=== PATIENT | male | born 1950 | race Caucasian/White ===

== ENCOUNTER → 2018-06-05 | Outpatient (CLI) | payer OTHER ==
[~2018-06-05] MED LIST: IOPAMIDOL (ISOVUE-300) 100 ML BTL ONE
== END ==
LOC: FIMAGING 08:30
PROVIDERS: ATTEND Surgery
DX: C18.9 Malignant neoplasm of colon, unspecified (principal)
CPT/HCPCS: Q9967

== ENCOUNTER 2018-06-12 05:46 | Inpatient (IN) | payer OTHER ==
--- NOTE | 2018-06-12 06:00 | PDANEPAE ---
ANE History of Present Illness partial colectomy, robot-assisted laparoscopy. ANE Past Medical History - Cardiovascular History Hx Hypertension: Yes Hx Arrhythmias: No Hx Chest Pain: No Hx Coronary Artery / Peripheral Vascular Disease: No Hx CHF / Valvular Disease: No Hx Palpitations: No Cardiovascular History Comment: pcp monitors bp meds. hx of heart murmur, had "chemical stress test" which apparently was "Ok" - Pulmonary History Hx COPD: No Hx Asthma/Reactive Airway Disease: No Hx Recent Upper Respiratory Infection: No Hx Oxygen in Use at Home: No Hx Sleep Apnea: No Sleep Apnea Screening Result - Last Documented: Positive Pulmonary History Comment: RAHUL on CPAP - Neurologic History Hx Cerebrovascular Accident: No Hx Seizures: No Hx Dementia: No Neurologic History Comment: Meniere's disease. vertigo - Endocrine History Hx Diabetes: No Obesity: mild - Renal History Hx Renal Disorders: No - Liver History Hx Hepatic Disorders: No - Neurological & Psychiatric Hx Hx Neurological and Psychiatric Disorders: No - Cancer History Hx Cancer: Yes Cancer History Comment: colon ca currently - Congenital Disorder History Hx Congenital Disorders: No - GI History GERD: no Hx Gastrointestinal Disorders: Yes Gastrointestinal History Comment: colonoscopy in sept- removed 3 polyps- cancerous on inside not outside - Other Health History Other Health History: wears reading glasses. wears bilateral hearing aides - Chronic Pain History Chronic Pain: No - Surgical History Prior Surgeries: tonsillectomy, laparoscopically-assisted partial colectomy ANE Review of Systems Review of Systems: - Exercise capacity METS (RN): 4 METS ANE Patient History - Allergies Allergies/Adverse Reactions: No Known Allergies Allergy (Verified 06/01/18 11:23) - Home Medications Home Medications: Hydrochlorothiazide [HCTZ (*)] 12.5 mg PO DAILY 02/11/16 [Last Taken 06/11/18] Losartan Potassium [Cozaar 25 mg (*)] 25 mg PO DAILY 02/11/16 [Last Taken ] Aspirin [Aspirin 325 mg (*)] 325 mg PO DAILY PRN 06/01/18 [Last Taken 06/05/18] Ezetimibe [Zetia 10 MG (*)] 10 mg PO DAILY 06/01/18 [Last Taken 06/11/18] Rosuvastatin Calcium [Crestor 40mg (*)] 40 mg PO DAILY 06/01/18 [Last Taken ] Sodium Chloride [Saline Nasal Colby] 1 drop NS DAILY 06/01/18 [Last Taken ] - Anes Hx Anes Hx: no prior problems - Smoking Hx Smoking Status: Former smoker Marijuana use: No - Alcohol Use Alcohol Use: Other (2-3 drinks/day) - Family Anes Hx Family Anes Hx: none Family Hx Anesthesia Complications: None ANE Labs/Vital Signs - Vital Signs Height: 182.88 cm Weight: 92.986 kg ANE Physical Exam - Airway Neck exam: decreased ROM (Decreased extension,lateral rotation) Mallampati Score: Class 3 Mouth exam: normal dental/mouth exam, small mouth opening - Pulmonary Pulmonary: clear to auscultation - Cardiovascular Cardiovascular: regular rate and rhythym, systolic murmur - ASA Status ASA Status: III ANE Anesthesia Plan Anesthesia Plan: general endotracheal anesthesia (Possible difficult intubation and use of special intubating equipment discussed. Questions answered.)
[2018-06-12] MEDS ORDERED: LR 1,000 ML IV ONE (06:22)
[2018-06-12] MEDS ORDERED: MIDAZOLAM 2 MG/2 ML VIAL IVP ONE (07:04)
[2018-06-12] MEDS ORDERED: fentaNYL 250 MCG/5 ML INJ ONE (07:12)
[2018-06-12] MEDS ORDERED: ROCURONIUM 50 MG/5 ML VIAL ONE ×3 (07:13→11:19)
[2018-06-12] MEDS ORDERED: DEXAMETHASONE 4 MG/ML VIAL ONE (07:13)
[2018-06-12] MEDS ORDERED: PROPOFOL/EMULSION 500 MG/50 ML BOTTLE IV ONE ×3 (07:13→10:36)
[2018-06-12] MEDS ORDERED: cefOXitin SODIUM 2 GM in NS 100 ML IV ONE (07:15)
--- NOTE | 2018-06-12 07:16 | PDHPUP ---
History & Physical Update H&P update statement: This history and physical update is based on an assessment of the patient which was completed after admission or registration (within 24 hours), but prior to the surgery/procedure. H&P update: H&P reviewed & patient examined, no change in patient's condition since H&P completed
[2018-06-12] MEDS ORDERED: BUPIVACAINE 0.5% 30 ML SDV ONE (07:46)
[2018-06-12] MEDS ORDERED: PHENYLEPHRINE HCL 100 MCG/ML SYR ONE (07:49)
[2018-06-12] MEDS ORDERED: fentaNYL 100 MCG/2 ML INJ ONE (09:03)
[2018-06-12] MEDS ORDERED: HYDROmorphONE/DILAUDID 2 MG/ML INJ ONE (10:22)
[2018-06-12 12:03] LABS: PLATELET COUNT 261 10^3/uL (150-400)
[2018-06-12] MEDS ORDERED: ALBUMIN 25% 50 ML SOLN IV ONE (12:41)
[2018-06-12] MEDS ORDERED: ALBUMIN 5% 250 ML BOTTLE IV ONE (12:41)
[2018-06-12] MEDS ORDERED: ONDANSETRON 4 MG/2 ML VIAL ONE (14:24)
[2018-06-12] MEDS ORDERED: BUPIVACAINE 0.25% 30 ML SDV ONE (14:40)
[2018-06-12] MEDS ORDERED: fentaNYL 100 MCG/2 ML INJ IVP PRN (14:44)
[2018-06-12] MEDS ORDERED: HYDROmorphONE/DILAUDID 1 MG/ML INJ IVP PRN ×2 (14:44→15:53)
[2018-06-12] MEDS ORDERED: NALOXONE HCL 0.4 MG/ML INJ IVP PRN (14:44)
[2018-06-12] MEDS ORDERED: PROMETHAZINE HCL 25 MG/ML INJ IVP PRN (14:44)
[2018-06-12] MEDS ORDERED: SUGAMMADEX SODIUM 200 MG/2 ML VIAL IVP ONE (14:47)
--- NOTE | 2018-06-12 14:59 | GCON ---
[f rep st] CONSULTATION INTRAOPERATIVE CONSULT DATE OF CONSULTATION: 06/12/2018 Dr. Pink had been doing a bowel operation on the patient and intraoperatively was concerned about identifying his left ureter and possible transection. On inspecting the intraabdominal space, I coul d identify the proximal end of the ureter. With the present surgery, I felt that I could not assess the distal ureter until I was able to dissect the bladder out further, but wanted to hold off until h e was done with his gastrointestinal surgical procedure. So at that point, I had left the operating room only to return sometime later to do the actual procedure. I reviewed the patient's chart. 1. I feel that this procedure was complicated and with the scarring and stuff that was toward the re troperitoneum, that this was a transection that would have been difficult to avoid. 2. It was identified appropriately. 3. I consulted for Urology. 4. Repaired in what I felt was a very technically good style. I sent no specimens and the patient tolerated the procedure intraoperatively well. /[id number]/MODL
--- NOTE | 2018-06-12 15:09 | GOP ---
[f rep st] OPERATIVE REPORT DATE OF OPERATION: 06/12/2018 SURGEON: Minh Carter MD PREOPERATIVE DIAGNOSIS: Ureteral transection. POSTOPERATIVE DIAGNOSIS: Ureteral transection. PROCEDURE PERFORMED: Ureteroureterostomy with mobilization of fat for a fat implant support anastomo sis and placement of a ureteral stent in an open fashion through a ureteroureterostomy and then cysto scopy. FINDINGS: DESCRIPTION OF PROCEDURE: After completion of the abdominal bowel surgery, I came and evaluated the bladder and the ureteral transection and dissected out the left side of the bladder and mobilized it and felt that I could not do a primary psoas hitch without mobilizing it and possibly doing a Boari f lap. Then at that point, I dissected out both distal and proximal ureters and elected that without t ension I could do a primary ureteroureterostomy and so the ureter was spatulated on the medial side o f the distal segment on the lateral side of the proximal segment. Then I did a primary anastomosis us ing a running Vicryl, and the spatulated distance was approximately 1.5 cm. I did the anterior wall first. Before I did the lateral wall, I placed a 4.7 multi-length stent, and that felt like it curled in the kidney both of those over a wire and it moved quite easily. At that point, the ant erior connection of the ureteroureterostomy was done with a Vicryl, and then I harvested fat from the yoko bladder area and wrapped that in a vascularized pedicle of fat around the ureter to reinforce i t so that hopefully it would close without any significant leakage. Then at that point, I had removed the catheter and cystoscoped him. He had no bladder injury. I could identify the ureter coming thro ugh the left ureteral orifice and then a Mondragon catheter was passed with a 10 cc balloon. I had recom mended that he continue the Mondragon catheter drainage for five days. If there is not much leakage, he c ould try to remove it and would take the stent out in approximately two weeks, if the patient has no problems or complications. /[id number]/MODL
[2018-06-12] MEDS ORDERED: OXYCODONE/APAP 5/325 TAB PO PRN (15:53)
[2018-06-12] MEDS ORDERED: cefOXitin SODIUM 2 GM in NS 100 ML IV SCH (16:00)
--- NOTE | 2018-06-12 16:00 | POSTOPPROG ---
Post Op Note Date of Operation: 06/12/18 Surgeon: Yunior Pink Salon Leader: Dr. Munguia Anesthesiologist: Dr. Cruz Anesthesia: GET(General Endotracheal) Pre-op Diagnosis: Colon cancer Post-op Diagnosis: same Procedure: Attempted DV/lap LAR, converted to open Macho's, ureter repair per uro Inf/Abcess present in the surg proc area at time of surgery?: Yes Depth: Organ Space EBL: 100-500
--- NOTE | 2018-06-12 16:07 | POSTANESTH ---
Post Anesthetic Evaluation Cardiovascular Status: Similar to Pre-Op Cond Respiratory Status: Similar to Pre-op Cond. Level of Consciousness/Mental Status: Can Participate in Eval Pain Control: Adequate, Prn Tx Ordered (On 06/13, patient reports his pain was well controlled overnight.) Nausea/Vomiting Control: Adequate, Prn Tx Ordered Complications Possibly Related to Anesthesia: None Noted
--- NOTE | 2018-06-12 16:48 | PDMN ---
Medical Necessity Medical necessity: [facility] S235 Bowel Surgery: Colectomy, Partial, with or without Ostomy, 4 days: 67 yo sched for low anterior colon resect, converted to open colon resect w/ colostomy (Nicholson's Procedure) w/ ureteroscopy and ureteral stent placement for colon adenocarcinoma. [facility] IP only.
--- NOTE | 2018-06-12 17:35 | GOP ---
[f rep st] OPERATIVE REPORT DATE OF OPERATION: 06/12/2018 SURGEON: Yung Pink MD WATER RESTORATION TECHNICIAN: Dr. Munguia, whose presence was requested by me and medically necessary for the safe and timely completion of this case. ANESTHESIA: General endotracheal anesthesia ANESTHESIOLOGIST: Dr. Cruz. PREOPERATIVE DIAGNOSIS: Colon cancer. POSTOPERATIVE DIAGNOSIS: Colon cancer. PROCEDURE PERFORMED: 1. Attempted robotic low anterior resection. 2. Rigid sigmoidoscopy. 3. Open Macho procedure. FINDINGS: The patient had a bulky mass, approximately 6 cm from the anal verge. The patient had scar tissue present at the site of the prior anastomosis. No liver, peritoneal, or omental lesions were identified. ESTIMATED BLOOD LOSS: 500 mL. INDICATIONS: This is a 67-year-old male with a history of prior colon polyp. Patient underwent prior robotic resection. The patient was found to have a recurrent mass on colonoscopy at the anastomotic site. Risks and benefits of the procedure were discussed with the patient's family. Their questions were answered and they wished to proceed. DESCRIPTION OF PROCEDURE: The patient was placed in the supine position initially. After the induction of adequate general endotracheal anesthesia, the patient was moved to the modified lithotomy position. He was then prepped and draped in the standard surgical fashion. 0.5% Marcaine was injected throughout the supraumbilical area for local anesthesia. An 8 mm incision was made and the abdominal wall was elevated. A Veress needle was inserted and after noting proper pressures, the abdomen was insufflated with carbon dioxide. An 8 mm trocar was passed. The camera followed. There was no apparent damage from trocar placement. Four more ports were placed, three 8 mm ports throughout the upper abdomen and one 12 mm port in the right lower quadrant. These were all placed under direct vision after injecting with 0.5% Marcaine for local anesthesia. There were no adhesions anterior to the colon omentum. However, after inspecting the sigmoid, there were adhesions on the mesenteric aspect. The right ureter was identified easily. However, in the dissection to identify the left ureter, a transection occurred. This was recognized immediately and urology consultation was obtained. Dissection was then carried posteriorly, attempting to obtain a mesorectal excision. However, there was thick scar tissue present. Vessel sealer was employed. However, a venous branch was transected. This could not be controlled adequately with the robotic instruments. Decision was made, at this point, to convert to an open procedure. A lower midline laparotomy was made with a #10 blade and carried down through subcutaneous tissue with Bovie cautery and blunt dissection. The midline was divided and the abdomen was entered. All the trocars were removed. The bleeding site was packed and the left ureter secured away from the dissection site. The bleeding site was found to be a tangential transection of a branch. A [id number] 3-0 Vicryl suture was used to repair this with good resulting hemostasis. The mesentery was then carefully dissected posteriorly initially. Next, the lateral stalks were divided using the Harmonic Scalpel. The anterior portion of the dissection was carefully performed using blunt dissection and Harmonic scalpel. A good circumferential dissection was obtained and it was felt that the patient would have adequate margin for primary anastomosis. The Contour TA stapler was brought in and the distal rectum transected with this. The specimen was then palpated and there was found to be approximately 3 cm margins on the distal aspect. The proximal aspect had been transected prior to this using the RUFINO stapler. This margin was approximately 10 cm. The mesentery was fully transected using the Harmonic scalpel and the specimen was sent for permanent section. On evaluation of the rectal stump, it was found that there were 2 defects distal to the staple line. Multiple attempts were made to suture these using 3- 0 PDS in a running fashion. These attempts were checked using the saline leak test. They could not be adequately closed and it was is felt that a stapled anastomosis would not be viable at this time. The decision was made then to close the defect as well as possible and then proceed with Macho procedure. Site for colostomy was chosen in the left supraumbilical area. An elliptical incision was made with a #10 blade and carried down through the subcutaneous tissues with Bovie cautery. The fascia was cleared off and a cruciate incision made in the fascia using cautery. The rectus muscle was split bluntly and the peritoneum was entered in this fashion. The descending colon was then brought through this and it was ensured there was no twisting. The ostomy was then matured using 3-0 Vicryl. Initial sutures were taken of the subcutaneous tissue , the deep colon wall and the superficial colon wall to dionte it. Subsequent sutures were then taken of the distal colon wall and the subcutaneous tissue. This resulted in a viable stoma that was digitally palpated and found to be patent. Attention was then turned to the ureteral injury. Dr. Carter, at this point, performed a primary ureteral anastomosis. This was done over a stent. Please see his operative note for full details of that procedure. However, after covering the anastomosis with a fatty flap, the area was thoroughly irrigated and aspirated. Good hemostasis noted throughout. No other lesions were identified. The small bowel and colon were thoroughly palpated, as well as the liver. Again, no lesions were noted. A 10 flat CONNIE drain was placed in the right laparoscopic incision and secured using 2-0 nylon in interrupted fashion. The drain itself was placed in the pelvis near, but not directly adjacent to the rectal stump. The bowel and omentum were placed. The fascia was then closed using #1 PDS in a running fashion. This was reinforced with #1 PDS internal retention sutures. The wound was thoroughly irrigated. Skin at all sites was closed with lebron. The wounds were sterilely dressed and following this, a tap block was performed by Dr. Cruz. The patient was then extubated and taken to the PACU in stable condition. COMPLICATIONS: Include left ureteral injury. DRAINS: Include CONNIE drain in the pelvis. /[id number]/MODL MTDD
[2018-06-12] MEDS: cefOXitin SODIUM 2 GM in NS 100 ML IV SCH (22:29)
[2018-06-13] MEDS: cefOXitin SODIUM 2 GM in NS 100 ML IV SCH ×2 (04:22→10:39)
--- NOTE | 2018-06-13 09:46 | SOAPPROG ---
SOAP Progress Note Assessment/Plan: Assessment: s/p Macho's and L ureter repair, improving. Advance diet, resume meds. OK to transfer to floor. Ambulate, PT. D/w patient and at length, questions answered. Plan: 06/13/18 09:45 Subjective: Patient feels better, pain minimal. Rosalva clears without difficulty. Objective: Vital Signs Temp Pulse Resp BP Pulse Ox 37.8 C 90 17 125/74 H 99 06/13/18 07:17 06/13/18 07:17 06/13/18 07:17 06/13/18 07:17 06/13/18 07:17 Laboratory Results 06/13/18 05:07 06/13/18 05:07 06/12/18 06/13/18 06/14/18 05:59 05:59 05:59 Intake Total 5750 Output Total 1840 90 Balance 3910 -90 Alert, NAD RRR Abd soft, inc TTP Drsg C/D/I CONNIE serosang Ostomy viable. ICD10 Worksheet Patient Problems: Problems Problem Status Onset Colon cancer Acute
[2018-06-13] MEDS: EZETIMIBE 10 MG TAB PO SCH (10:38)
[2018-06-13] MEDS: ENOXAPARIN 40 MG/0.4 ML SYR SC SCH (11:46)
--- NOTE | 2018-06-13 13:42 | ASMTCMCOM ---
CM Note CM Note Notes: Pt is a 67 yo M with history of colon cancer. Pt underwent uretral transection. PT is ordered, CM to follow. Discharge needs TBD Plan: TBD Date Signed: 06/13/2018 01:42 PM Electronically Signed By:REJI Arciniega
[2018-06-13] MEDS: FAMOTIDINE 20 MG TAB PO SCH (21:07)
[2018-06-13] MEDS ORDERED: oxyCODONE IR 5 MG TAB PO PRN (22:22)
[2018-06-13] MEDS ORDERED: ACETAMINOPHEN 325 MG TAB PO PRN (22:22)
[2018-06-14] MEDS: ONDANSETRON 4 MG/2 ML VIAL IVP PRN ×3 (00:12→19:15)
[2018-06-14] MEDS ORDERED: SODIUM CL NASAL 45 ML BTL NS PRN (09:00)
--- NOTE | 2018-06-14 09:17 | SOAPPROG ---
SOAP Progress Note Assessment/Plan: Assessment: Post op left ureteral surgical repair Plan: Patient is doing well, will continue to monitor ZIYAD. Amanda stay in 06/14/18 09:14 Subjective: No complaints Objective: Vital Signs Temp Pulse Resp BP Pulse Ox 36.6 C 90 16 149/86 H 96 06/14/18 08:44 06/14/18 08:44 06/14/18 08:44 06/14/18 08:44 06/14/18 08:44 Laboratory Results 06/14/18 04:08 06/14/18 04:08 06/13/18 06/14/18 06/15/18 05:59 05:59 05:59 Intake Total 5750 1450 Output Total 1840 1945 35 Balance 3910 -495 -35 Physical Exam - Physical Exam General Appearance: alert, no apparent distress Neck: normal inspection Respiratory: normal breath sounds Abdomen: soft, other (ostomy pink and moist. incisions covered with bandage. ziyad output mildly bloody) ICD10 Worksheet Patient Problems: Problems Problem Status Onset Colon cancer Acute
[2018-06-14] MEDS: ENOXAPARIN 40 MG/0.4 ML SYR SC SCH (09:26)
[2018-06-14] MEDS: EZETIMIBE 10 MG TAB PO SCH (09:26)
[2018-06-14] MEDS: FAMOTIDINE 20 MG TAB PO SCH ×2 (09:26→21:53)
[2018-06-14] MEDS: LOSARTAN POTASSIUM 25 MG TAB PO SCH (09:26)
--- NOTE | 2018-06-14 10:03 | SOAPPROG ---
SOAP Progress Note Assessment/Plan: Assessment: s/p Macho's and L ureter repair, stable. Cont CONNIE and dyer. Ambulate, IS. Will watch labs and nausea for now. Appreciate urology assistance. Plan: 06/13/18 09:45 06/14/18 10:01 Subjective: Patient with an episode of N/V last PM, none now. In general concepción po. Ambulating with assist only. + flatus from ostomy. Objective: Vital Signs Temp Pulse Resp BP Pulse Ox 36.6 C 90 16 149/86 H 96 06/14/18 08:44 06/14/18 08:44 06/14/18 08:44 06/14/18 09:26 06/14/18 08:44 Laboratory Results 06/14/18 04:08 06/14/18 04:08 06/13/18 06/14/18 06/15/18 05:59 05:59 05:59 Intake Total 5750 1450 Output Total 1840 1945 60 Balance 3910 -495 -60 Alert, NAD RRR Abd soft, inc TTP Inc C/D/I CONNIE serous Dyer clear Ostomy viable, min serous drainage ICD10 Worksheet Patient Problems: Problems Problem Status Onset Colon cancer Acute
--- NOTE | 2018-06-14 15:10 | WOCRNPDOC ---
WOCRN Advanced Assessment Note - Skin Integrity Problem, Advanced Assess Medial Abdomen Surgical Wound/Incision Dressing Type: Open to Air Closure Description: Jordon, Approximated - Colostomy Assessment, Advanced Left Lower Abdomen Colostomy Stoma Colostomy Appliance Intact: Yes Colostomy Appliance Currently in Use: Two Piece Flat, 2 1/4, Cut to Fit Stoma Color: [place] Stoma Turgor: Moist, Taught Stoma Shape: Round Stoma Height: Protruding Colostomy Effluent: None (sweat) Colostomy Details: End Colostomy Comment/Treatment Details: Initial (day one) teaching done with patient and his . Discussed pouch options, wear time, sports and diet. Demonstrated how to empty the pouch, specifically the one piece 2 1/4 coloplast jose, which he will use at home. Initial product order form with Lyle filled out and sent to case managment. Secure start with coloplast initiated per patient verbal consent. All questions answered. Assigned patient reading "how to change ostomy pouch and colostomy surgery". Jacinto RN in room. chief hydroelectric station operator will round again tomorrow afternoon for initial pouch change.
[2018-06-14] MEDS: MELATONIN 3 MG TAB PO PRN (21:53)
[2018-06-15] MEDS: ONDANSETRON 4 MG/2 ML VIAL IVP PRN ×2 (03:27→08:13)
[2018-06-15] MEDS ORDERED: NS 1,000 ML IV SCH (08:45)
--- NOTE | 2018-06-15 08:58 | SOAPPROG ---
SOAP Progress Note Assessment/Plan: Assessment: Post op left ureteral surgical repair Plan: Monitor ZIYAD. Mondragon in until next week. Stent remains in for 1-3 weeks. 06/15/18 08:57 Subjective: vomiting Objective: Vital Signs Temp Pulse Resp BP Pulse Ox 36.9 C 91 18 141/75 H 97 06/15/18 07:37 06/15/18 07:37 06/15/18 07:37 06/15/18 07:37 06/15/18 07:37 Laboratory Results 06/15/18 04:32 06/15/18 04:32 06/14/18 06/15/18 06/16/18 05:59 05:59 05:59 Intake Total 1450 1520 250 Output Total 1945 2146 240 Balance -495 -626 10 Physical Exam - Physical Exam General Appearance: alert Respiratory: normal breath sounds, No respiratory distress Abdomen: distended, other (ostomy pink and moist. ziyad with light pink serum) Male Genitalia: other (catheter clear) ICD10 Worksheet Patient Problems: Problems Problem Status Onset Colon cancer Acute
[2018-06-15] MEDS ORDERED: PROMETHAZINE HCL 25 MG/ML INJ IVP PRN (09:40)
--- NOTE | 2018-06-15 09:48 | SOAPPROG ---
SOAP Progress Note Assessment/Plan: Assessment: s/p Macho's and L ureter repair, continued N/V. Replete lytes, will ask IM to see. Check KUB, reduce diet to clears. Plan: 06/13/18 09:45 06/14/18 10:01 06/15/18 09:47 Subjective: Patient with another episode N/V this AM. Vague nausea through the day. Minimal pain, ambulating. Objective: Vital Signs Temp Pulse Resp BP Pulse Ox 36.9 C 91 18 141/75 H 97 06/15/18 07:37 06/15/18 07:37 06/15/18 07:37 06/15/18 07:37 06/15/18 07:37 Laboratory Results 06/15/18 04:32 06/15/18 04:32 06/14/18 06/15/18 06/16/18 05:59 05:59 05:59 Intake Total 1450 1520 250 Output Total 3981 5792 240 Balance -495 -304 10 Alert, NAD RRR Abd soft, inc TTP Inc C/D/I CONNIE serous Ostomy viable ICD10 Worksheet Patient Problems: Problems Problem Status Onset Colon cancer Acute
[2018-06-15] MEDS: ENOXAPARIN 40 MG/0.4 ML SYR SC SCH (11:08)
[2018-06-15] MEDS: EZETIMIBE 10 MG TAB PO SCH (11:08)
[2018-06-15] MEDS: FAMOTIDINE 20 MG TAB PO SCH ×2 (11:09→20:31)
[2018-06-15] MEDS: LOSARTAN POTASSIUM 25 MG TAB PO SCH (11:09)
--- NOTE | 2018-06-15 19:20 | GCON ---
[f rep st] CONSULTATION DATE OF CONSULTATION: 06/15/2018 Mr. Sauceda is a pleasant 67-year-old gentleman with a history of colon cancer who was found to have a cecal mass on recurrent colonoscopy, and he underwent open resection of the mass with ureteral injury and repair on the . Since then, he has done poorly. He has had difficulty with nausea, vomitin g, and no appetite. He has had a number of episodes of vomiting. There has been no blood. No hemat emesis. He has had minimal to no ostomy output. He is not hungry at all. Currently, he has an NG t ube, but he is neither nauseated nor hungry. He has not had fever, chills, sputum, nausea, vomiting, diarrhea. He has a Mondragon in place. REVIEW OF SYSTEMS: Complete 10-point review of systems conducted and negative except as noted in the HPI. PAST MEDICAL HISTORY: Colon cancer, hyperlipidemia, and hypertension. ALLERGIES: No known drug allergies. MEDICATIONS: Aspirin, hydrochlorothiazide, rosuvastatin ezetimibe, losartan, saline nasal spray. SOCIAL HISTORY: He drinks alcohol but not to excess. He is a retired chemical laboratory assistant. He lives [facility]. Originally from [place]. FAMILY HISTORY: Reviewed and unremarkable. ALLERGIES: No known drug allergies. PHYSICAL EXAMINATION: VITAL SIGNS: Temp 36.8, blood pressure 148/87, pulse 78, breathing 18 times a minute, 94% on room air. GENERAL: No acute distress. HEENT: Sclerae anicteric. Oropharynx clear . There is an NG tube in place with dark bilious fluid in the canister. NECK: Supple without lymph adenopathy or JVD. LUNGS: Clear to auscultation bilaterally. HEART: S1, S2. ABDOMEN: Soft. It is distended. The surgical incision is clean, dry, and intact. Jordon are in place. The ostomy is pink with minimal brown output. There is a CONNIE drain in the right lower quadrant. Bowel sounds are present, but hypoactive. There is no rebound or guarding. LOWER EXTREMITIES: Without edema. Calve s are nontender. SKIN: Without rash. NEUROLOGIC: Exam is nonfocal. LABORATORY: Sodium 127, potassium 4.6, chloride 94, bicarb 24, BUN 17, creatinine 0.9. LFTs normal. Albumin is 3.0. White count 7.1, hematocrit 27, platelets are 238,000. I have discussed the case with Dr. Yung Pink. Abdominal x-ray today, images reviewed inter preted by me, shows an esophagogastric tube in the decompressed stomach, side port at esophagogastric junction. The there are decompressed loops of small bowel in the upper abdomen. ASSESSMENT AND PLAN: A 67-year-old gentleman with a history of complex mass resected, now with what appears to be a prolonged postoperative ileus. 1. Ileus. I think this is a prolonged ileus from surgery. I suspect it will improve over the comin g days. I have encouraged ambulation. Given the absence of fevers or peritoneal signs, I do not thi nk there is an acute intraabdominal process. 2. Hyponatremia. This may be contributing to his ileus. Certainly, no other electrolyte abnormalit ies can. I think this is poor intake hyponatremia. I have started him on some normal saline. I thi nk given the relatively mild nature of the hyponatremia, we can just correct it as we will. 3. Nausea. He is on Phenergan and Zofran, which appear to work for him when he takes them. We will continue the nasogastric tube. 4. Prophylaxis. Low molecular weight heparin as you are. DISPOSITION: Inpatient. Thank you for this consultation. Hospital Medicine will follow. /[id number]/MODL
[2018-06-15] MEDS: NS 1,000 ML IV SCH (19:49)
[2018-06-15] MEDS: ZOLPIDEM TARTRATE 5 MG TAB PO PRN (20:31)
[2018-06-16] MEDS: NS 1,000 ML IV SCH (03:08)
--- NOTE | 2018-06-16 08:16 | ASMTCMCOM ---
CM Note CM Note Notes: Met with Pt & who are receiving Edu on Colostomy care by Chloe CINTRON daily x2 day. Pt has CONNIE drain, Mondragon and an NG for ileus they inserted. Pt reports feeling much better since the NG. Pt had ongoing nausea and vomiting. CM discussed the need for Home care because he has a new colostomy and he refused saying he can handle it. Pt knows if he changes his mind he can let CM know before discharge. CM available if needs arise. PLAN: Home Independently with . Date Signed: 06/16/2018 08:15 AM Electronically Signed By:Hien Hdz
--- NOTE | 2018-06-16 09:20 | SOAPPROG ---
SOAP Progress Note Assessment/Plan: Assessment: Post op left ureteral surgical repair Plan: Monitor ZIYAD and will check Cr again. Mondragon to stay in until seen in office next week. Stent in place for 2-4 weeks. Will leave ZIYAD management to tiffanie MAYORGA. 06/16/18 09:18 Subjective: better today Objective: Vital Signs Temp Pulse Resp BP Pulse Ox 36.7 C 84 18 150/77 H 94 06/16/18 09:06 06/16/18 09:06 06/16/18 09:06 06/16/18 09:06 06/16/18 09:06 Laboratory Results 06/15/18 04:32 06/16/18 04:04 06/15/18 06/16/18 06/17/18 05:59 05:59 05:59 Intake Total 1520 3606 Output Total 0747 7424 Balance -812 -1064 Physical Exam - Physical Exam General Appearance: alert, no apparent distress Respiratory: normal breath sounds Abdomen: soft, other (ziyad, ostomy) Male Genitalia: other (catheter) ICD10 Worksheet Patient Problems: Problems Problem Status Onset Colon cancer Acute
[2018-06-16] MEDS: EZETIMIBE 10 MG TAB PO SCH (09:25)
[2018-06-16] MEDS: FAMOTIDINE 20 MG TAB PO SCH ×2 (09:26→20:49)
[2018-06-16] MEDS: LOSARTAN POTASSIUM 25 MG TAB PO SCH (09:26)
[2018-06-16] MEDS: ENOXAPARIN 40 MG/0.4 ML SYR SC SCH (09:26)
--- NOTE | 2018-06-16 09:56 | SOAPPROG ---
SOAP Progress Note Assessment/Plan: Assessment: s/p Macho's and L ureter repair, markedly improved. Appreciate IM, urology input. Plan clamp NGT trial. Poss d/c CONNIE on 06/17 if cleared by urology. D/w patient and family. Plan: 06/13/18 09:45 06/14/18 10:01 06/15/18 09:47 06/16/18 09:55 Subjective: Patient feels better, no N/V. Minimal pain. Objective: Vital Signs Temp Pulse Resp BP Pulse Ox 36.7 C 84 18 150/77 H 94 06/16/18 09:06 06/16/18 09:06 06/16/18 09:06 06/16/18 09:26 06/16/18 09:06 Laboratory Results 06/15/18 04:32 06/16/18 04:04 06/15/18 06/16/18 06/17/18 05:59 05:59 05:59 Intake Total 1520 3606 Output Total 7578 5530 Balance -086 -7494 Alert, NAD Abd soft, NTTP Inc C/D/I Ostomy productive CONNIE serous ICD10 Worksheet Patient Problems: Problems Problem Status Onset Colon cancer Acute
--- NOTE | 2018-06-16 13:39 | HOSPPROG ---
Hospitalist Progress Note Assessment/Plan: 67 year old male with pmh of colon cancer initially admitted for a resection of a cecal mass complicated by ureteral injury, who has since developed a post op ileus and mild hyponatremia Ileus- initially with NV requiring NGT, but NG clamped today and patient tolerating small sips of clear fluids. Abdomen is soft. -OOB and ambulate -continue clears as tolerated -If further NV NG back to suction, if no longer NV dc NGT Hyponatremia- Likely secondary to poor PO intake. Responding well to normal saline. continue IVF and repeat serum sodium in am. NV- seems to have resolved. PRN zofran and phenergan. ureteral injury- dyer to remain in until seen next week by urology. Ostomy- status post resection of mass. ostomy with scant output. Wound care consulted. Management per GS PPX- LMWH Fluids- NS Lytes- hyponatremia Thank you for allowing us to participate in the care of this patient, medicine will continue to follow. Subjective: no longer with NV, tired. No ab pain. tolerated water with no issues. Objective: Vital Signs Temp Pulse Resp BP Pulse Ox 36.7 C 84 18 150/77 H 94 06/16/18 09:06 06/16/18 09:06 06/16/18 09:06 06/16/18 09:26 06/16/18 09:06 Laboratory Results 06/15/18 04:32 06/16/18 04:04 06/15/18 06/16/18 06/17/18 05:59 05:59 05:59 Intake Total 1520 3606 Output Total 2146 6100 Balance -289 -1809 - Physical Exam Constitutional: no apparent distress, appears nourished Eyes: PERRL, anicteric sclera Ears, Nose, Mouth, Throat: moist mucous membranes, hearing normal Cardiovascular: regular rate and rhythym, no murmur, rub, or gallop Respiratory: no respiratory distress, no rales or rhonchi, clear to auscultation Gastrointestinal: other (mid line incision with lebron appears clean and well healed. ostomy site non erythematous. Drain in place on right with scant serosanguinous output. ) Genitourinary: dyer in urethra Skin: warm, normal color Musculoskeletal: full muscle strength, no muscle tenderness, normal joint ROM Neurologic: AAOx3 Psychiatric: interacting appropriately Lymph, Heme, Immunologic: no cervical LAD, no supraclavicular LAD ICD10 Worksheet Patient Problems: Problems Problem Status Onset Colon cancer Acute
--- NOTE | 2018-06-16 15:36 | WOCRNPDOC ---
SUPA Advanced Assessment Note - Colostomy Assessment, Advanced Left Lower Abdomen Colostomy Stoma Colostomy Appliance Intact: Yes Colostomy Appliance Currently in Use: Two Piece Flat, 2 1/4, Cut to Fit Stoma Color: [place] Stoma Turgor: Moist Stoma Shape: Round (flat on proximal edge) Stoma Height: Protruding Mucocutaneus Junction: Intact Colostomy Effluent: Fecal, Liquid Colostomy Size - Head-to-Toe Length X Width X Depth (cm): 3.2x3.2 Peristomal Skin: Intact Colostomy Comment/Treatment Details: Met with patient and his today to cover day 2 teachings. Bag of reading material given, including generalostomy information, the Ostomy group here at [facility], diet guidelines, etc. Before getting started, patient was able to verbally review a lot of the information given to him from his first meeting with wound care. He is not particularly concerned about his ability to manage the ostomy but is most concerned today with getting pathology results back. Supplies gathered at bedside and the process of removing the appliance, measuring the stoma, cutting and applying the new appliance discussed prior to removal. Two piece flat appliance removed and stoma and peristomal skin cleaned with a warm washcloth. Patient was handed a one piece appliance that has been ordered for him for home use. He was able to demonstrate how to close the end of the appliance and verbalize the emptying and cleaning process. Stoma measured at 32mm using the paper guide from his kit. He observed my work using a mirror provided by wound care and we discussed proper fitting so as not to expose too much peristomal skin. Measurements transferred to the appliance and the patient attempted to cut but given the curvature of the scissors and that the patient is left handed, he found it difficult to cut. I completed the cutting for him and placed the appliance. All further questions answered. Although the patient has not yet demonstrated all of the required skills for changing his own appliance, his curiosity about the cares suggest that he is willing and he will be able. I suggested he begin to take over some of the cares, including emptying, while he remains hospitalized so that he could do so with nursing support. According to CM, he has been offered a home health RN but has refused this service so far. Wound care will round again on Tuesday and patient aware that he'll be expected to be more hands on with the next appliance change.
[2018-06-16] MEDS: ZOLPIDEM TARTRATE 5 MG TAB PO PRN (20:49)
[2018-06-17] MEDS: EZETIMIBE 10 MG TAB PO SCH (09:17)
[2018-06-17] MEDS: FAMOTIDINE 20 MG TAB PO SCH ×2 (09:17→21:16)
[2018-06-17] MEDS: LOSARTAN POTASSIUM 25 MG TAB PO SCH (09:17)
[2018-06-17] MEDS: ENOXAPARIN 40 MG/0.4 ML SYR SC SCH (09:18)
--- NOTE | 2018-06-17 09:59 | SOAPPROG ---
SOAP Progress Note Assessment/Plan: Assessment: s/p Macho's and L ureter repair. Advance diet. CONNIE d/c'd. Discussed path in detail, will need oncology consult as OP (patient has seen Dr. Denise in the past). Questions answered. Plan: 06/13/18 09:45 06/14/18 10:01 06/15/18 09:47 06/16/18 09:55 06/17/18 09:57 Subjective: Patient feels better, no N/V. [place] po, ambulating. Objective: Vital Signs Temp Pulse Resp BP Pulse Ox 36.6 C 77 16 125/71 H 93 06/17/18 07:38 06/17/18 07:38 06/17/18 07:38 06/17/18 09:17 06/17/18 07:38 Laboratory Results 06/15/18 04:32 06/16/18 04:04 06/16/18 06/17/18 06/18/18 05:59 05:59 05:59 Intake Total 3606 1100 Output Total 6100 2735 68 Balance -2494 -1635 -68 Alert, NAD RRR Abd soft, NTTP Inc C/D/I CONNIE serous, repeat Cr 0.9 Ostomy min fluid ICD10 Worksheet Patient Problems: Problems Problem Status Onset Colon cancer Acute
--- NOTE | 2018-06-17 14:29 | HOSPPROG ---
Hospitalist Progress Note Assessment/Plan: 67 year old male with pmh of colon cancer initially admitted for a resection of a cecal mass complicated by ureteral injury, who has since developed a post op ileus and mild hyponatremia Ileus- NG tube dc'd, patient tolerating clear liquid diet for the last 24 hr. Case was discussed with General surgery who was comfortable advancing patient's diet. -OOB and ambulate -regular diet Hyponatremia- Likely secondary to poor PO intake. Responding well to normal saline. continue IVF and repeat serum sodium in am. -stop fluids and encourage PO -repeat serum sodiu NV- seems to have resolved. PRN zofran and phenergan. ureteral injury- dyer to remain in until seen next week by urology. Ostomy- status post resection of mass. ostomy with scant output. Wound care consulted. Management per GS -CONNIE out PPX- LMWH Fluids- NS Lytes- hyponatremia -dispo- per primary. Thank you for allowing us to participate in the care of this patient, medicine will continue to follow. Subjective: tolerated PO with out issue. pain manageable. Objective: Vital Signs Temp Pulse Resp BP Pulse Ox 36.7 C 78 169 H 144/75 H 92 06/17/18 11:25 06/17/18 11:25 06/17/18 11:25 06/17/18 11:25 06/17/18 11:25 Laboratory Results 06/15/18 04:32 06/16/18 04:04 06/16/18 06/17/18 06/18/18 05:59 05:59 05:59 Intake Total 3606 1100 450 Output Total 6100 2735 968 Balance -2494 -1635 -518 - Physical Exam Constitutional: no apparent distress, appears nourished, not in pain Eyes: PERRL, anicteric sclera, EOMI Ears, Nose, Mouth, Throat: moist mucous membranes, hearing normal, ears appear normal, no oral mucosal ulcers Cardiovascular: regular rate and rhythym, no murmur, rub, or gallop Respiratory: no respiratory distress, no rales or rhonchi, clear to auscultation Gastrointestinal: soft, non-tender abdomen, no palpable masses, other (ostomy with scant output. incision CDI. ) Genitourinary: no bladder fullness, no bladder tenderness, no renal bruits Skin: no rashes or abrasions, no fluctuance, no induration Musculoskeletal: full muscle strength, no muscle tenderness, normal joint ROM Neurologic: AAOx3, sensation intact bilaterally Psychiatric: interacting appropriately, not anxious, not encephalopathic, thought process linear Lymph, Heme, Immunologic: no cervical LAD, no supraclavicular LAD ICD10 Worksheet Patient Problems: Problems Problem Status Onset Colon cancer Acute
[2018-06-17] MEDS: ZOLPIDEM TARTRATE 5 MG TAB PO PRN (21:16)
--- NOTE | 2018-06-18 10:05 | SOAPPROG ---
SOAP Progress Note Assessment/Plan: Assessment: s/p Macho's and L ureter repair. PO intake still somewhat subpar but improving. Still having mobility issues as well, poss need for rehab--d/w PT/ OT. Plan: 06/13/18 09:45 06/14/18 10:01 06/15/18 09:47 06/16/18 09:55 06/17/18 09:57 06/18/18 10:03 Subjective: Patient feels better. Improved po intake but still less than ideal. No N/V. OOB to chair. Objective: Vital Signs Temp Pulse Resp BP Pulse Ox 36.8 C 84 16 154/79 H 94 06/18/18 07:42 06/18/18 07:42 06/18/18 07:42 06/18/18 07:42 06/18/18 07:42 Laboratory Results 06/15/18 04:32 06/18/18 04:24 06/17/18 06/18/18 06/19/18 05:59 05:59 05:59 Intake Total 1100 1600 Output Total 0686 4228 350 Balance -1635 -2168 -350 Alert, NAD RRR Abd soft, NTTP Inc C/D/I Ostomy min productive. ICD10 Worksheet Patient Problems: Problems Problem Status Onset Colon cancer Acute
[2018-06-18] MEDS: ENOXAPARIN 40 MG/0.4 ML SYR SC SCH (10:17)
[2018-06-18] MEDS: FAMOTIDINE 20 MG TAB PO SCH ×2 (10:18→21:18)
[2018-06-18] MEDS: EZETIMIBE 10 MG TAB PO SCH (10:18)
[2018-06-18] MEDS: LOSARTAN POTASSIUM 25 MG TAB PO SCH (10:21)
--- NOTE | 2018-06-18 12:55 | HOSPPROG ---
Hospitalist Progress Note Assessment/Plan: 67 year old male with pmh of colon cancer initially admitted for a resection of a cecal mass complicated by ureteral injury, who has since developed a post op ileus and mild hyponatremia Ileus- Resolved. patient tolerating PO regular diet. Ostomy with watery output. -OOB and ambulate -regular diet Hyponatremia- Likely secondary to poor PO intake. Responded to saline. IV fluids held but patient not taking much PO. I will order 1L of NS and repeat Na in am. -repeat serum sodium in am NV- seems to have resolved. PRN zofran and phenergan. ureteral injury- dyer to remain in until seen next week by urology. Ostomy- status post resection of mass. ostomy with scant output. Wound care consulted. Management per GS -CONNIE out HTN- on losartan, was orthostatic this am. I/O show poor oral intake. Hold losartan for now. Orthostatis- Positive orthostatic bp this afternoon. Poor PO intake with watery ostomy output. restarted fluids. PPX- LMWH Fluids- NS Lytes- hyponatremia Dispo- per primary. Thank you for allowing us to participate in the care of this patient, medicine will continue to follow. Subjective: patient eager to work with PT/OT. tolerated a sizeable breakfast this morning without issue. Objective: Vital Signs Temp Pulse Resp BP Pulse Ox 36.8 C 82 16 125/73 H 94 06/18/18 07:42 06/18/18 12:30 06/18/18 07:42 06/18/18 12:30 06/18/18 07:42 Laboratory Results 06/15/18 04:32 06/18/18 04:24 06/17/18 06/18/18 06/19/18 05:59 05:59 05:59 Intake Total 1100 1600 Output Total 2733 8943 4718 Balance -7505 -2168 -1150 - Physical Exam Constitutional: no apparent distress, appears nourished, not in pain Eyes: PERRL, anicteric sclera, EOMI Ears, Nose, Mouth, Throat: moist mucous membranes, hearing normal, ears appear normal, no oral mucosal ulcers Cardiovascular: regular rate and rhythym, no murmur, rub, or gallop Respiratory: no respiratory distress, no rales or rhonchi, clear to auscultation Gastrointestinal: other (soft non tender ab. Incision looks clean and non erythematous. ostomy with watery output. ) Genitourinary: no bladder fullness, no bladder tenderness, no renal bruits Skin: no rashes or abrasions, no fluctuance, no induration Musculoskeletal: full muscle strength, no muscle tenderness, normal joint ROM Neurologic: AAOx3, sensation intact bilaterally Psychiatric: interacting appropriately, not anxious, not encephalopathic, thought process linear Lymph, Heme, Immunologic: no cervical LAD, no supraclavicular LAD ICD10 Worksheet Patient Problems: Problems Problem Status Onset Colon cancer Acute
[2018-06-18] MEDS: NS 1,000 ML IV SCH ×2 (13:30→23:50)
--- NOTE | 2018-06-18 15:22 | ASMTCMCOM ---
CM Note CM Note Notes: Attempted to meet with patient today. He asked that I leave that it was not a good time. Plan: Dc to home with . Date Signed: 06/18/2018 03:22 PM Electronically Signed By:Ana Paula Black RN
[2018-06-18] MEDS: ZOLPIDEM TARTRATE 5 MG TAB PO PRN (21:18)
[2018-06-19] MEDS: MELATONIN 3 MG TAB PO PRN (01:05)
[2018-06-19 07:15] VITALS: BP 125/74
[2018-06-19] MEDS: FAMOTIDINE 20 MG TAB PO SCH (08:19)
[2018-06-19] MEDS: LOSARTAN POTASSIUM 25 MG TAB PO SCH (08:19)
[2018-06-19] MEDS: ENOXAPARIN 40 MG/0.4 ML SYR SC SCH (08:19)
[2018-06-19] MEDS: EZETIMIBE 10 MG TAB PO SCH (08:19)
--- NOTE | 2018-06-19 10:07 | SOAPPROG ---
SOAP Progress Note Assessment/Plan: Assessment: s/p Macho's and L ureter repair. Improving, d/w urology and will remove dyer this AM and he will f/u 2 weeks for stent removal. Plan d/c today. [place] removed, steri strips applied. Reviewed signs/symptoms of concern, questions answered. Plan: 06/13/18 09:45 06/14/18 10:01 06/15/18 09:47 06/16/18 09:55 06/17/18 09:57 06/18/18 10:03 06/19/18 10:05 Subjective: Patient feels better, one episode of dizziness upon standing rapidly. Rosalva po well. Ambulating. Objective: Vital Signs Temp Pulse Resp BP Pulse Ox 36.4 C 79 18 125/74 H 96 06/19/18 07:14 06/19/18 07:14 06/19/18 07:14 06/19/18 07:14 06/19/18 07:14 Laboratory Results 06/15/18 04:32 06/19/18 04:05 06/18/18 06/19/18 06/20/18 05:59 05:59 05:59 Intake Total 1600 1973 1062 Output Total 5118 2775 Balance -2168 -802 1062 Alert, NAD RRR Abd soft, NTTP Inc C/D/I Ostomy patent ICD10 Worksheet Patient Problems: Problems Problem Status Onset Colon cancer Acute
--- NOTE | 2018-06-19 11:25 | ASMTDCNOTE ---
Case Management Discharge Discharge Order Complete? Answers: Yes Patient to Obtain Answers: via Family Medications Transportation Arranged Answers: Family/Friends Family Notified Answers: Yes Discharge Comments Notes: Patient medically cleared for independent discharge to home. Met with patient and to emphasize that HHC is still an option available to them should he get home and find his ostomy care is more than they can handle. I directed them to go through their PCP should needs for HHC occur. Date Signed: 06/19/2018 11:16 AM Electronically Signed By:Ana Paula Black RN
--- NOTE | 2018-06-19 11:31 | ASMTLACE ---
LACE Length of stay for Answers: 7-13 days current admission Acuity / Level of Answers: Yes Care: Did the patient have an inpatient admission? Comorbidities - select Answers: Any tumor (including all that apply lymphoma or leukemia) Other Notes: HTN # of Emergency department Answers: 0 visits in the last 6 months Score: 11 Date Signed: 06/19/2018 11:17 AM Electronically Signed By:Ana Paula Black RN
--- NOTE | 2018-06-27 20:10 | GDS ---
[f rep st] DISCHARGE SUMMARY PRINCIPAL DIAGNOSIS: Rectal cancer. PRINCIPLE PROCEDURE: Macho's colectomy and repair of left ureter. INDICATIONS FOR ADMISSION: 67-year-old male with history of recurrent rectal cancer. Please see the history and physical for full details of the admission. HOSPITAL COURSE: On 06/12/2018, the patient underwent a robotic converted to open Macho colectomy . The patient had a left ureteral injury that was repaired primarily by Dr. Carter. Please see the o perative report for full details of the procedure. Postoperatively, the patient was admitted to the step-down unit. There, he improved rapidly. He was transferred to the floor. His diet was graduall y advanced. The patient continued with a Mondragon catheter per Urology until postoperative day 5. The old Mondragon catheter was removed, and the patient was able to urinate without difficulty. Ostomy teach ing was performed. The lebron were removed on the day of discharge. No other complications were id entified. Patient was discharged home on 06/19/2018. Extensive instructions were given to the patie nt's family regarding his diet and exercise advancement. He will be sent home with ostomy care. He will follow up in 2 weeks. /[id number]/MODL
== END 2018-06-19 14:10 | disposition home or self-care (01) | DRG 330 ==
LOC: F3N 05:46 → F2N 14:56 → F1N 06-13 14:05
PROVIDERS: ADMIT Surgery; ATTEND Surgery
PROC: 0DTP0ZZ Resection of Rectum, Open Approach (ICD-10-PCS; principal; 2018-06-12 07:30)
PROC: 0T9680Z Drainage of Right Ureter with Drainage Device, Via Natural or Artificial Opening Endoscopic (ICD-10-PCS; principal; 2018-06-12 07:30)
PROC: 0D1N0Z4 Bypass Sigmoid Colon to Cutaneous, Open Approach (ICD-10-PCS; principal; 2018-06-12 07:30)
PROC: 0DNV0ZZ Release Mesentery, Open Approach (ICD-10-PCS; principal; 2018-06-12 07:30)
PROC: 0DTN0ZZ Resection of Sigmoid Colon, Open Approach (ICD-10-PCS; principal; 2018-06-12 07:30)
PROC: 0WJG0ZZ Inspection of Peritoneal Cavity, Open Approach (ICD-10-PCS; principal; 2018-06-12 07:30)
PROC: 0T1 Urinary System, Bypass (ICD-10-PCS; principal; 2018-06-12 07:30)
DX: C19 Malignant neoplasm of rectosigmoid junction (principal); E87.1 Hypo-osmolality and hyponatremia; N99.72 Accidental puncture and laceration of a genitourinary system organ or structure during other procedure; K91.89 Other postprocedural complications and disorders of digestive system; K66.0 Peritoneal adhesions (postprocedural) (postinfection); C77.2 Secondary and unspecified malignant neoplasm of intra-abdominal lymph nodes; I10 Essential (primary) hypertension; Z53.31 Laparoscopic surgical procedure converted to open procedure
CPT/HCPCS: 97116-GP; 97161-GP; 97165-GO; C1769; C2625; J0694; J1100; J1170; J1650; J2250; J2370; J2405; J2550; J2704; J3010; P9016; P9041; P9047